=== PATIENT | male | born 1980 | race Caucasian/White ===

== ENCOUNTER 2022-12-18 21:46 | Emergency (ER) | payer SELFPAY ==
[~2022-12-18] VITALS: Ht 177.8 cm; Wt 81.0 kg
[2022-12-19 01:51] LABS: Basophils # (auto) 0.1 10 ^3/uL (0-0.2); Basophils % (auto) 0.7 % (0.0-2.0); Eosinophils # (auto) 0 10 ^3/uL (0-0.8); Eosinophils % (auto) 0.1 % (0.0-7.0); Hematocrit 42.6 % (41.0-53.0); Lymphocytes # (auto) 1.6 10 ^3/uL (0.4-5.4); Lymphocytes % (auto) 14.1 % (10.0-50.0); Mean Corpuscular Hemoglobin 31.9 pg (28.0-32.0); Mean Corpuscular Hgb Conc. 35.3 g/dL (32.0-36.0); Mean Corpuscular Volume 90.3 fL (80.0-100.0); Monocytes # (auto) 0.6 10 ^3/uL (0-1.3); Monocytes % (auto) 5.1 % (0.0-12.0); Neutrophils # (auto) 9.3 10 ^3/uL (1.6-8.6); Nucleated Red Blood Cells % 0.4 %; Red Blood Cells 4.72 10^6/uL (4.5-5.90); Red Cell Distribution Width 12.7 % (11.8-14.3); White Blood Cell 11.6 10^3/uL (4.4-10.8)
[2022-12-19 02:09] LABS: Albumin 4.3 g/dL (3.4-5.0); BUN/Creatinine Ratio 8.8 (10.0-20.0); Calcium 9.5 mg/dL (8.5-10.1); Potassium 3.9 mmol/L (3.5-5.1)
[2022-12-19 02:11] LABS: INR 1.02 (0.9-1.15); Partial Thromboplastin Time 27.8 sec (24.6-33.4)
[2022-12-19 02:12] LABS: Bilirubin, Total 0.6 mg/dL (0.2-1.0); Total Protein 7.8 g/dL (6.4-8.2)
[2022-12-19] MEDS ORDERED: MORPHINE SULFATE 4 MG/ML SYR/VIAL IV ONE (03:30)
[2022-12-19] MEDS ORDERED: ONDANSETRON HCL 4 MG/2 ML VIAL IV ONE (03:30)
[2022-12-19] MEDS ORDERED: PROPOFOL 10 MG/ML 20 ML IV ONE ×3 (03:35→04:10)
[2022-12-19] MEDS ORDERED: HYDR-4902 PO (05:45)
[2022-12-19] MEDS ORDERED: KETOROLAC TROMETH 30 MG/ML 1ML VIAL IV ONE (06:00)
[2022-12-19 06:39] VITALS: BP 125/79
== END 2022-12-19 06:49 | disposition home or self-care (01) ==
LOC: ER 21:46
DX: S52.511A Displaced fracture of right radial styloid process, initial encounter for closed fracture (principal); W18.09XA Striking against other object with subsequent fall, initial encounter; Y93.29 Activity, other involving ice and snow; Y92.89 Other specified places as the place of occurrence of the external cause; Y99.8 Other external cause status
CPT/HCPCS: 25605; 36415; 73100; 73110; 80053; 85025; 85610; 85730; 96374; 99152; 99285; J1885; J2405; J2704; 96375